=== PATIENT | female | born 2000 | race Caucasian/White ===

== ENCOUNTER 2020-08-29 05:15 | Day surgery (SDC) | payer OTHER ==
[~2020-08-29 05:15] MED LIST: LACTATED RINGERS 1000 ML IV PRN
[2020-08-29] MEDS ORDERED: SCOPOLAMINE HYDROBROMIDE 1.5 MG PATCH.TD72 ONE (05:35)
[2020-08-29] MEDS ORDERED: CEFAZOLIN 1 GM/D5W RTU 1 GM/50 ML RTUPB IV ONE (05:36)
[2020-08-29 06:40] LABS: ABSOLUTE BASOPHILS # (AUTO) 0.1 10^3/uL (0.0-0.2); ABSOLUTE EOSINOPHILS # (AUTO) 0.1 10^3/uL (0.0-0.6); ABSOLUTE LYMPHOCYTES (AUTO) 2.4 10^3/uL (0.5-4.7); ABSOLUTE MONOCYTES (AUTO) 0.5 10^3/uL (0.1-1.4); ABSOLUTE NEUT (AUTO) 2.6 10^3/uL (1.7-8.2); BASOPHILS % (AUTO) 0.9 % (0-2); EOSINOPHILS % (AUTO) 2.1 % (0-6); HEMATOCRIT 40.2 % (36.0-47.0); LYMPHOCYTES % (AUTO) 42.8 % (13-45); MEAN CORPUSCULAR HEMOGLOBIN 30.6 pg (27.0-33.4); MEAN CORPUSCULAR HGB CONC 34.7 g/dL (32.0-36.0); MEAN CORPUSCULAR VOLUME 88 fl (80-97); MONOCYTES % (AUTO) 8.5 % (3-13); PLATELET COUNT 202 10^3/uL (150-450); RED BLOOD COUNT 4.56 10^6/uL (3.72-5.28); RED CELL DISTRIBUTION WIDTH 12.5 % (11.5-14.0); SEGMENTED NEUTROPHILS % (AUTO) 45.7 % (42-78); TOTAL CELLS COUNTED % (AUTO) 100 %; WHITE BLOOD COUNT 5.7 10^3/uL (4.0-10.5)
[2020-08-29] MEDS ORDERED: MIDAZOLAM 2 MG/2 ML INJ ONE (06:59)
[2020-08-29] MEDS ORDERED: FENTANYL CITRATE INJ/PF 100 MCG/2 ML AMPUL ONE ×2 (06:59→10:08)
[2020-08-29] MEDS ORDERED: PROPOFOL INJ 200 MG/20 ML VIAL IV ONE (07:00)
[2020-08-29 07:05] LABS: ALBUMIN 3.7 g/dL (3.5-5.0); ALKALINE PHOSPHATASE 45 U/L (38-126); ANION GAP 6 (5-19); ASPARTATE AMINO TRANSFERASE 19 U/L (14-36); BILIRUBIN,DIRECT 0.1 mg/dL (0.0-0.4); BILIRUBIN,TOTAL 0.4 mg/dL (0.2-1.3); BLOOD UREA NITROGEN 9 mg/dL (7-20); CALCIUM 9.4 mg/dL (8.4-10.2); CARBON DIOXIDE 26 mmol/L (22-30); CHLORIDE 105 mmol/L (98-107); GLUCOSE 98 mg/dL (75-110); POTASSIUM 4.2 mmol/L (3.6-5.0); TOTAL PROTEIN 6.1 g/dL (6.3-8.2)
[2020-08-29] MEDS ORDERED: BUPIVACAINE HCL 0.25 % INJ/PF (2.5 MG/1 ML) 30 ML VIAL ONE (10:04)
[2020-08-29] MEDS ORDERED: DEXAMETHASONE SOD PHOSPHATE INJ 4 MG/1 ML VIAL ONE (10:08)
[2020-08-29] MEDS ORDERED: ONDANSETRON HCL INJ/PF 4 MG/2 ML SDV ONE (10:08)
[2020-08-29] MEDS ORDERED: LIDOCAINE 2% INJ (20 MG/ML) 20 ML MDV ONE (10:09)
[2020-08-29] MEDS ORDERED: DIPHENHYDRAMINE HCL 50 MG/ML VIAL IV PRN (10:52)
[2020-08-29] MEDS ORDERED: MEPERIDINE HCL/PF INJ 25 MG/1 ML DISP.SYRIN IV PRN (10:52)
[2020-08-29] MEDS ORDERED: PROMETHAZINE HCL INJ 25 MG/1 ML VIAL IV PRN (10:52)
[2020-08-29] MEDS ORDERED: FENTANYL CITRATE INJ/PF 100 MCG/2 ML AMPUL IV PRN ×3 (10:52)
[2020-08-29] MEDS ORDERED: MORPHINE SULFATE 10 MG/ML INJ IV PRN (10:52)
[2020-08-29] MEDS ORDERED: ONDANSETRON HCL INJ/PF 4 MG/2 ML SDV IV PRN (10:52)
[2020-08-29] MEDS ORDERED: KETOROLAC TROMETHAMINE 60 MG/2 ML SDV ONE ×2 (11:35→14:08)
--- NOTE | 2020-08-29 11:54 | Operative Report ---
Operative Report DATE OF SURGERY: 08/29/20 PREOPERATIVE DIAGNOSIS: Pelvic pain / Dysmnenorrhea POSTOPERATIVE DIAGNOSIS: same OPERATION: Dilatation and Curettage SURGEON: JORJE ACEVEDO DENTAL APPLIANCE REPAIRER: None ANESTHESIA: GA TISSUE REMOVED OR ALTERED: Endometrium COMPLICATIONS: None ESTIMATED BLOOD LOSS: 25 cc INTRAOPERATIVE FINDINGS: Normal female PROCEDURE: She was brought into the OR and placed on the table in supine position. He was then inducted under general anesthesia. Was repositioned in a dorsolithotomy position. Patient was then prepped and draped in a sterile fashion. It was drained of 20 cc of clear yellow urine. Pelvic under anesthesia was then perfo rmed with normal findings. Baxley speculum was inserted in the vagina and opened up. It was grasped at its anterior lip with a single-tooth tenaculum. Uterus was sounded to 8 cm. It was dilated with Valle dilators. Endometrial curettings were obtained in 4 quadrants. Acumen probe was inserted and the other equipment was removed. Was drawn through the abdominal wall. Was introduced through the umbilicus and carried through the various layers until the peritoneal cavity was entered. A drop of saline was placed on the varies needle. It was picked up and the staining egressed into the peritoneal cavity without problems. Patient was then connected to CO2. He had 3 L of CO2 injected to a pressure of 15 cm of water. Varies needle was then removed. Mall incision was made infraumbilically. This incision a trocar and sleeve were placed. The trocar was removed. Laparoscope was inserted through the sleeve. Skin incision was made suprapubically. Through this incision a trocar and sleeve were inserted until the peritoneal cavity was entered. Trocar was removed. Sleeve a probe was inserted. Contents of the pelvis and abdomen were then video recorded. The suprapubic sleeve was removed. The CO2 was allowed to escape through the subumbilical sleeve. The subumbilical sleeve was then removed. She had 4 cc of quarter percent Marcaine and injected in the subumbilical incision and 3 cc of quarter percent Marcaine injected in the suprapubic incision. In both incisions was closed with interrupted 0 Vicryl. And edges in the subumbilical incision was closed with a subcuticular 4-0 Prolene. Suprapubic incision was closed with interrupted using 4-0 Prolene. Attension was turned back down to the vagina. Tenaculum probe was removed. Valve speculum was inserted and opened up. There is no evidence of active bleeding. Anabelle was swabbed out. This terminated the procedure. These was discontinued. Was placed back in a supine position and transferred recovery room in satisfactory condition. Blood loss was 25 cc. Jorje Viera M.D. dictating on 08/29/2020
[2020-08-29] MEDS ORDERED: OXYCODONE-ACETAMINOPHEN 5-325 MG TABLET PO ONE (12:15)
[2020-08-29] MEDS ORDERED: OXYCODONE-ACETAMINOPHEN 5-325 MG TABLET ONE (12:19)
[2020-08-29 13:37] VITALS: BP 100/70
[2020-08-29] MEDS ORDERED: NEOSTIGMINE METHYLSULFATE 10 MG/10 ML VIAL ONE (14:08)
[2020-08-29] MEDS ORDERED: ROCURONIUM BROMIDE INJ 50 MG/5 ML VIAL IV ONE (14:08)
[2020-08-29] MEDS ORDERED: GLYCOPYRROLATE 1 MG/5 ML VIAL ONE (14:08)
== END 2020-08-29 13:30 | disposition home or self-care (01) ==
LOC: OROUT 05:15
PROVIDERS: ATTEND Obstetrics & Gynecology
DX: R10.2 Pelvic and perineal pain (principal); N94.6 Dysmenorrhea, unspecified; E28.2 Polycystic ovarian syndrome; N94.10 Unspecified dyspareunia; Z79.3 Long term (current) use of hormonal contraceptives; Z03.818 Encounter for observation for suspected exposure to other biological agents ruled out
CPT/HCPCS: 36415; 85025; 87635; 81025; 80053; 88305 ×2; 00940; 58120; J2250; J3490 ×3; J0690; J1100; J1885; J3010; J2710; J2405; J2704; C9803; 940